=== PATIENT | female | born 1935 | race Caucasian/White ===

== ENCOUNTER 2019-09-09 19:30 | Inpatient (IN) ==
--- NOTE | 2019-09-09 20:09 | EKG Report ---
Test Performed on : 09/09/2019 7:54:55 PM Test Reason : SOB Blood Pressure : / mmHG Vent. Rate : 111 BPM Atrial Rate : 113 BPM P-R Int : 000 ms QRS Dur : 112 ms QT Int : 304 ms P-R-T Axes : 000 -50 060 degrees QTc Int : 413 ms Atrial fibrillation. with rapid ventricular response. with occasional ventricular-paced complexes Left axis deviation Anterior infarct , age undetermined Abnormal ECG When compared with ECG of 29-APR-2018 21:12, Electronic ventricular pacemaker has replaced Sinus rhythm. Unconfirmed Result
[2019-09-09] MEDS ORDERED: CARDIZEM IV ONE (20:36)
[2019-09-09 20:56] LABS: BASO# 0.03 X1000 (0.0-0.2); BASO% 0.5 % (0.0-0.8); EOS# 0.08 X1000 (0.0-0.7); EOS% 1.4 % (0.0-10.0); HEMATOCRIT 38.8 % (37.0-47.0); HEMOGLOBIN 13.1 g/dL (12.0-16.0); LYMPH# 1.59 X1000 (1.2-3.4); MCH 30.4 PG (27-31); MCHC 33.8 g/dL (33-37); MONO# 0.76 X1000 (0.11-0.59); MONO% 12.9 % (1.7-9.3); MPV 10.5 FL (7.4-10.4); NEUT# 3.42 X1000 (1.4-6.5); NEUT% 58.2 % (42.2-75.2); PLT 192 X1000 (130-400); RBC 4.31 XMIL (4.2-5.4); RDW 15.1 % (11.5-14.5); WBC 5.88 X1000 (4.8-10.8)
--- NOTE | 2019-09-09 21:01 | Diag Imaging Result Doc PS360 ---
EXAM: CHEST-1 VIEW 09/09/2019 HISTORY: SOB TECHNIQUE: AP portable at 0842 COMMENT: Compared to 08/28/2019 the pleural effusions present previously bilaterally have resolved. The inspiration is less optimal, otherwise are has been no significant change. IMPRESSION: No acute disease. Electronically signed by Fox Slater 09/09/2019 8:58 PM
[2019-09-09 21:22] LABS: ALB/GLOB RATIO 1.4; ALBUMIN 3.8 g/dL (3.5-5.0); CALCIUM 9.8 mg/dL (8.8-10.2); CREATININE 0.9 mg/dL (0.5-0.9); MAGNESIUM 1.7 mg/dL (1.5-2.7); TOTAL BILIRUBIN 0.71 mg/dL (0.20-1.00); TOTAL PROTEIN 6.5 g/dL (6.3-8.3)
[2019-09-09] MEDS ORDERED: LASIX IV ONE (22:41)
--- NOTE | 2019-09-09 23:18 | PROVIDER DOCUMENTATION ---
This chart was entered by Karli Clay Scribe, acting as scribe for Nila Joseph MD. HPI-Respiratory General - General Chief Complaint: Shortness of Breath Stated Complaint: SOB-CHEST HEAVY-NECK PAIN Time Seen by Provider: 09/09/19 20:06 Source: patient Allergies/Adverse Reactions: Patient Allergies Allergy/AdvReac Type Severity Reaction Status Date / Time No Known Allergies Allergy Verified 09/09/19 20:30 Home Medications: Home Medication List Medication Instructions Recorded Confirmed Last Taken Type Aspirin 81 mg PO DAILY 01/10/17 09/09/19 09/09/19 History Calcium Carbonate/Vitamin D3 600 mg PO DAILY 01/10/17 09/09/19 09/09/19 History [Calcium 600+D Softgel] Cholecalciferol (Vit D3) [Vitamin 5,000 unit PO DAILY 01/10/17 09/09/19 09/09/19 History D3] Levothyroxine [Synthroid] 88 microgm PO DAILY 01/10/17 09/09/19 09/09/19 History Metoprolol [Lopressor] 0.5 tab PO DAILY 01/10/17 09/09/19 09/09/19 History Tramadol HCl 50 mg PO DAILY PRN PRN 01/10/17 09/09/19 09/09/19 History Trazodone [Desyrel] 50 mg PO HS PRN PRN 01/10/17 09/09/19 09/08/19 History Furosemide 1 tab PO DAILY 09/09/19 09/09/19 09/09/19 History - History of Present Illness-Resp Nature of Presenting Problem: Pt is a 83 yof who presents to the ED with a cc of intermittent SOB and neck pain. pt states that her symptoms began 1 week ago. reports hx of afib. denies any chest pain or cough. states that her symptoms worsens with lying down. denies any other complaints. Quality of Pain: reports: sharp Severity in ED: reports: mild Onset/Duration: reports: 1 week ago Timing: reports: intermittent Exposure: reports: unknown cause Cough Quality/Degree: reports: no cough Episode Frequency: no prior episodes Current Respiratory Medication Therapy: Initiated see nurses note Modifying Factors: improves with: lying down (worsen), sitting upright (improves) Associated Symptoms: reports: shortness of breath Similar Symptoms Previously?: No Recently seen or treated by another doctor?: No Review of Systems - Adult - REVIEW OF SYSTEMS - ADULT Constitutional: reports: see HPI Eyes: reports: no symptoms reported Ears, Nose, Mouth & Throat: reports: no symptoms reported Cardiovascular: reports: see HPI, irregular heart rate. denies: chest pain Respiratory: reports: see HPI, shortness of breath Gastrointestinal: reports: no symptoms reported Genitourinary: reports: no symptoms reported Musculoskeletal: reports: see HPI, neck pain Integumentary: reports: no symptoms reported Neurological: reports: no symptoms reported Psychiatric: reports: no symptoms reported Endocrine: reports: no symptoms reported Hematologic/Lymphatic: reports: no symptoms reported Allergic/Immunologic: reports: no symptoms reported All Other Systems: Reviewed and Negative Past History - Adult - PAST MEDICAL HISTORY-ADULT Review of Records: reports: Social history reviewed & non-contributory. Major Childhood Illnesses: reports: denies history Cardiovascular: reports: A-Fib, HTN Respiratory: reports: denies history Gastrointestinal: reports: denies history Obstetrical/Gynecological: reports: denies history Genitourinary: reports: denies history Musculoskeletal: reports: denies history Neurological: reports: denies history Endocrine/Immune: reports: denies history Other Conditions: reports: denies history Physical Exam-General - PHYSICAL EXAM-ADULT Initial Vital Signs Reviewed: Yes - CONSTITUTIONAL General Appearance: alert - EYES Eyes: pink conjunctivae - HEAD, EARS, NOSE, MOUTH & THROAT HENMT: moist mucous membranes - NECK Neck: tender lateral, other (Left trapezius tenderness near neck). negative: non-tender, normal inspection - RESPIRATORY Respiratory: chest non-tender, lungs clear, normal breath sounds - CARDIOVASCULAR Cardiovascular: normal peripheral pulses, regular rate, rhythm - GASTROINTESTINAL (ABDOMEN) Abdominal Exam: normal bowel sounds, non tender, soft - MUSCULOSKELETAL Back Exam: normal inspection, other Extremity: normal range of motion, non-tender, normal inspection - SKIN Integumentary: normal color, normal turgor, warm/dry. negative: ecchymosis, erythema - NEUROLOGIC Neurologic: grossly normal - PSYCHIATRIC Psych/Mental Status: normal mood/affect, normal thought content, normal thought process, oriented x 3 - HEART Score HEART Score: History: Slightly Suspicious HEART Score: ECG: Normal HEART Score: Age: > or = 65 Years HEART Score: Risk Factors for Atherosclerotic Disease: 1 or 2 Risk Factors HEART Score: Troponin: < or = Normal Limit Total HEART Score:: 3 Progress - PLAN OF CARE/RESULTS Progress/Plan/Lab Results: Vital Signs - 8 hr 09/09/19 19:48 09/09/19 20:34 09/09/19 21:25 Temperature 97.6 F Pulse Rate 129 H 110 H 83 Respiratory Rate 20 17 18 Blood Pressure 111/80 141/87 123/61 O2 Sat by Pulse Oximetry 92 L 95 95 09/09/19 22:02 Temperature Pulse Rate 85 Respiratory Rate 20 Blood Pressure 132/88 O2 Sat by Pulse Oximetry 94 L Laboratory Results - last 24 hr 09/09/19 09/09/19 09/09/19 20:46 20:46 20:46 WBC 5.88 RBC 4.31 Hgb 13.1 Hct 38.8 MCV 90.0 MCH 30.4 MCHC 33.8 RDW Std Deviation 15.1 H Plt Count 192 MPV 10.5 H Immature Gran % (Auto) 0.0 Neut % (Auto) 58.2 Lymph % (Auto) 27.0 [place] % (Auto) 12.9 H Eos % (Auto) 1.4 Baso % (Auto) 0.5 Immature Gran # (Auto) 0.00 Neut # (Auto) 3.42 Lymph # (Auto) 1.59 [place] # (Auto) 0.76 H Eos # (Auto) 0.08 Baso # (Auto) 0.03 Sodium 139 Potassium 4.0 Chloride 100 Carbon Dioxide 28 Anion Gap 11 BUN 21 Creatinine 0.9 Estimated GFR/1.73 m2 60 BUN/Creatinine Ratio 23 Glucose 114 H Calculated Osmolality 281 Calcium 9.8 Magnesium 1.7 Total Bilirubin 0.71 AST 30 ALT 14 Alkaline Phosphatase 40 Creatine Kinase 76 Troponin T High Sens Drb-L-Axchsqejndv Pept 8484 H Total Protein 6.5 Albumin 3.8 Globulin 2.7 Albumin/Globulin Ratio 1.4 09/09/19 20:46 WBC RBC Hgb Hct MCV MCH MCHC RDW Std Deviation Plt Count MPV Immature Gran % (Auto) Neut % (Auto) Lymph % (Auto) [place] % (Auto) Eos % (Auto) Baso % (Auto) Immature Gran # (Auto) Neut # (Auto) Lymph # (Auto) [place] # (Auto) Eos # (Auto) Baso # (Auto) Sodium Potassium Chloride Carbon Dioxide Anion Gap BUN Creatinine Estimated GFR/1.73 m2 BUN/Creatinine Ratio Glucose Calculated Osmolality Calcium Magnesium Total Bilirubin AST ALT Alkaline Phosphatase Creatine Kinase Troponin T High Sens 28 H Bck-A-Ucbqyabmegd Pept Total Protein Albumin Globulin Albumin/Globulin Ratio Orders Category Date Time Status CHEST-1 VIEW [RAD] Stat Exams 09/09/19 20:35 Completed CBC WITH ELECTRONIC DIFF [HEME] Stat Lab 09/09/19 20:46 Completed CK PROFILE [SP CHEM] Stat Lab 09/09/19 20:46 Completed COMPREHENSIVE METABOLIC PANEL [CHEM] Stat Lab 09/09/19 20:46 Completed MAGNESIUM [CHEM] Stat Lab 09/09/19 20:46 Completed PRO B-NATRIURETIC PEPTIDE Stat Lab 09/09/19 20:46 Completed TROPONIN T HIGH SENSITIVITY Stat Lab 09/09/19 20:46 Completed Diltiazem [Cardizem] Med 09/09/19 20:36 Discontinued 10 mg IV NOW ONE Furosemide [Lasix] Med 09/09/19 22:41 Discontinued 40 mg IV NOW ONE EKG [EKG] Stat Ther 09/09/19 20:03 Draft Result Diagrams: 09/09/19 20:46 09/09/19 20:46 - REASSESSMENT Reassessment #1 Time Reassessed: 23:00 Status: improving (pt feeling better, labs and possible admission d/w pt.) - EKG 1 Time of EKG reading by physician:: 19:54 EKG Read and Signed by:: Nila Joseph EKG Interpretation (*Must complete 3 of following elements*): Abnormal (anterior infarct) Rate: 111 Rhythm: Afib with RVR [place]: left (deviation) QRS: normal NE Interval: normal ST Wave: normal Prior EKG Comparison: no prior EKG - XRAY 1 XRAY: Bilateral XRAY Study: Chest Impression: Normal, See EMR Report (EXAM: CHEST-1 VIEW 09/09/2019 HISTORY: SOB TECHNIQUE: AP portable at 0842 COMMENT: Compared to 08/28/2019 the pleural effusions present previously bilaterally have resolved. The inspiration is less optimal, otherwise are has been no significant change. IMPRESSION: No acute disease. Electronically signed by Fox Slater 09/09/2019 8:58 PM 09/09/192057 Interpreting Physician: Fox Slater MD Dictated Date/Time: 09/09/192057 cc: Nila Joseph MD; Damien Olivier MD) - CONSULTS/PCP/HOSPITALIST Notification #1 *Consult/PCP/Hospitalist*: d/w Dr Rodrigues Time Discussed: 23:15 Consult Disposition: Admit Departure - Departure Date of Disposition Decision: 09/09/19 Time of Disposition Decision: 23:17 DIAGNOSIS: CHF exacerbation, Atrial fibrillation with RVR Disposition: ADMITTED INPATIENT 09 Certified Medical Emergency: Emergent Condition: Stable Referrals and Follow-Ups: Damien Olivier MD [Primary Care Provider] - - Critical Care Note This patient required my direct & personal management of CC.: No Attestation - Physician/ SAURAV Attestation Patient care was provided by Advanced Practice Provider:: No The physician spent face to face time with patient:: Yes Advanced Practice Provider documentation review:: Supervising physician onsite and consulted in the evaluation and care of this patient. The physician did have a face to face encounter with the patient. This chart was documented by the indicated scribe, (Karli Clay Scribe) and accurately reflects the services I performed and decisions made by me, Nila Joseph MD, as attested by the provider's signature.
[2019-09-09] MEDS ORDERED: LOPRESSOR PO ONE (23:54)
[2019-09-10] MEDS ORDERED: ULTRAM PO PRN (01:56)
[2019-09-10] MEDS ORDERED: TYLENOL PO PRN (01:56)
[2019-09-10] MEDS ORDERED: ZOFRAN IV PRN (01:56)
[2019-09-10] MEDS: DESYREL PO PRN ×2 (02:54→21:58)
[2019-09-10 05:46] LABS: AGAP 11; BUN 17 mg/dL (8-22); CALCIUM 9.1 mg/dL (8.8-10.2); CHLORIDE 100 mmol/L (98-107); COSMO 281; CREATININE 0.8 mg/dL (0.5-0.9); ESTIMATED GFR > 60; GLUCOSE 99 mg/dL (70-104); MAGNESIUM 1.5 mg/dL (1.5-2.7); POTASSIUM 3.5 mmol/L (3.5-5.1); SODIUM 140 mmol/L (136-145); TCO2 29 mmol/L (25-35)
--- NOTE | 2019-09-10 06:22 | EKG Report ---
Test Performed on : 09/10/2019 05:12:35 AM Test Reason : follow up Blood Pressure : / mmHG Vent. Rate : 089 BPM Atrial Rate : 098 BPM P-R Int : 000 ms QRS Dur : 118 ms QT Int : 416 ms P-R-T Axes : 000 -47 040 degrees QTc Int : 506 ms Atrial fibrillation. with premature ventricular or aberrantly conducted complexes. Left axis deviation Incomplete left bundle branch block Prolonged QT Abnormal ECG When compared with ECG of 09-SEP-2019 19:54, (Unconfirmed) Atrial fibrillation. has replaced Electronic ventricular pacemaker Unconfirmed Result
[2019-09-10] MEDS: SYNTHROID PO SCH (07:48)
[2019-09-10] MEDS ORDERED: CARDIZEM PO SCH (08:00)
[2019-09-10] MEDS: ASPIRIN PO SCH (08:21)
[2019-09-10] MEDS: LASIX IV SCH ×2 (08:22→21:59)
--- NOTE | 2019-09-10 08:45 | EKG Report ---
Test Performed on : 09/10/2019 08:33:04 AM Test Reason : afib rvr Blood Pressure : / mmHG Vent. Rate : 067 BPM Atrial Rate : 067 BPM P-R Int : 000 ms QRS Dur : 112 ms QT Int : 392 ms P-R-T Axes : 059 -56 057 degrees QTc Int : 414 ms Sinus rhythm. with premature atrial complexes. in a pattern of bigeminy. Left axis deviation Nonspecific ST and T wave abnormality Abnormal ECG When compared with ECG of 10-SEP-2019 05:12, (Unconfirmed) Sinus rhythm. has replaced Atrial fibrillation. Incomplete left bundle branch block is no longer present Confirmed by Felicia Alcantara MD ([id number]) on 09/12/2019 12:15:32 PM
[2019-09-10] MEDS ORDERED: LOPRESSOR PO SCH (09:00)
[2019-09-10] MEDS ORDERED: MAGNESIUM SULFATE 2 GM/S.W.I. 2 GM/50 ML IVPB IV ONE (09:49)
--- NOTE | 2019-09-10 09:51 | HISTORY AND PHYSICAL ---
PRIMARY CARE PROVIDER: Dr. Damien Olivier. Inside Plant Supervisor is Dr. Whitehead CHIEF COMPLAINT: Shortness of breath and could not lay down without smothering. HISTORY OF PRESENT ILLNESS: Ms Person is a 83-year-old female who carries a past medical history of hypertension, breast cancer 20 years ago that she underwent a right lumpectomy in [place]. She reports today that she took 4 doses of her home Lasix secondary to having fluid on her lower extremities and she felt like she was smothering at home and she could not lay flat. She feels that her symptoms began over a week ago. She really denied any chest type pain. There was some mention of some neck pain. She denies any history of atrial fibrillation or congestive heart failure, but she does report that she her symptoms improved when she received IV Lasix and she is breathing much better now and she feels that her lower extremity edema has improved. Workup in the ED revealed atrial fibrillation with RVR. The proBNP of 8484, so we will admit her for new onset atrial fibrillation with RVR new onset congestive heart failure. Her initial rate when she came in was in the 130s. She was last in the 80s. We will get a repeat EKG to make sure she is out of rapid ventricular response or has converted to sinus rhythm. She was not hooked up to the monitor at the time of my assessment. However, she did sound irregular. We will watch her on PVC and continue with gentle diuresis and consult Cardiology. PAST MEDICAL HISTORY: Hypertension, breast cancer 20 years ago. PAST SURGICAL HISTORY: Right lumpectomy, right wrist surgery, left knee bone removal, cholecystectomy. ALLERGIES: No known drug allergies. SOCIAL HISTORY: Ex smoker 30 years ago. It sounds like she was a remote smoker. She is , son is at bedside. No alcohol, tobacco now or illicit drug use. HOME MEDICATIONS: 1. Calcium 600 D soft gel p.o. daily. 2. Vitamin D 5000 units p.o. daily. 3. Lasix 20 mg p.o. daily. 4. Aspirin 81 mg p.o. daily. 5. Synthroid 88 mg p.o. daily. 6. Toprol 50 mg half tab p.o. daily. 7. Tramadol 50 mg p.o. daily p.r.n. pain. 8. Desyrel 50 mg p.o. at bedtime p.r.n. sleep. REVIEW OF SYSTEMS: Twelve-point review of systems complete and negative except for those mentioned in HPI. PHYSICAL EXAMINATION: VITAL SIGNS: Temperature is 97.6 degrees. Initial heart rate was 129. O2 saturation was 92%. Current heart rate 85, respirations 20, blood pressure 132/88, O2 is 94% on room air. GENERAL: Ms. Person is an 83-year-old female who is sitting up in the stretcher in no acute distress. HEENT: Atraumatic, normocephalic. PERRL. NECK: Supple. Trachea midline. CARDIOVASCULAR: Irregularly irregular. RESPIRATORY: Lung sounds clear. GASTROINTESTINAL: Soft, nontender, nondistended. Positive bowel sounds 4 quads. EXTREMITIES: Lower extremity trace edema. She does have some pitting ankle edema on the left. NEUROLOGIC: No focal deficits noted. DIAGNOSTIC DATA: Initial EKG atrial fibrillation with RVR at 111 beats per minute. Waiting on repeat EKG. Chest x-ray compared to 08/01/2019, the pleural effusions present previously bilaterally have resolved. Inspiration is left optimal. Otherwise no significant change. LABORATORY DATA: White count 5, hemoglobin and hematocrit 13 and 38, platelet count is 192,000. Sodium 139, potassium 4.0, BUN 21, creatinine 0.9 blood glucose is 114, Mag is 1.7. Troponin 28. ProBNP is 8484. ASSESSMENT/PLAN: 1. New onset atrial fibrillation with rapid ventricular response. Patient reports no history of atrial fibrillation or any type of irregular heart beat. She was given a dose of metoprolol and IV Cardizem in the ED. Her rate dropped into the 80s. However, she still sounds irregular. She was not attached to the monitor at the time of my assessment. We will get a repeat EKG. Continue her home metoprolol. Consult Cardiology. We will recheck an echocardiogram, TSH and follow her electrolytes closely. 2. New onset congestive heart failure. She denies any history of heart failure. However, she is on home Lasix that she was just recently placed on by her primary care physician. She does have an old EKG, I believe from a year ago that shows an EF of 40 to 45 percent with some mild global hypokinesis. We will continue with some gentle diuresis at least for couple more doses. Await cardiology's recommendations. She did take 4 doses of her home Lasix and was given additional 40 in the ER. The patient does report improvement after the IV Lasix. She does not feel like she is smothering in her chest anymore and she feels like she has had some improvement in her lower extremity edema. We will trend 1 more set of cardiac enzymes and recheck a proBNP this morning. 3. Hypertension, will continue home medications. Blood pressures are stable. 4. History of breast cancer 20 years ago, status post right lumpectomy in [place]. 5. Further recommendations to follow physician evaluation, laboratory and diagnostic data. Dictated by HUMBLE Munoz for Terrence Rodrigues MD I have performed a face to face diagnostic evaluation. Labs/xrays- reviewed. Exam: Chest-clear, CV- regular. A/P- New onset of Afib, CHF- Admit, telemetry, cardiology consult, gentle diuresis. Dr. Rodrigues cc: MD Damien López MD William D. Denney, MD [facility]
--- NOTE | 2019-09-10 10:20 | EKG Report ---
Test Performed on : 09/10/2019 10:08:31 AM Test Reason : irregular HR Blood Pressure : / mmHG Vent. Rate : 084 BPM Atrial Rate : 100 BPM P-R Int : 120 ms QRS Dur : 116 ms QT Int : 384 ms P-R-T Axes : 000 -50 010 degrees QTc Int : 453 ms Sinus rhythm. with marked sinus arrhythmia. Left axis deviation Anterior infarct , age undetermined Abnormal ECG When compared with ECG of 10-SEP-2019 08:33, (Unconfirmed) premature atrial complexes. are no longer present Confirmed by Felicia Alcantara MD ([id number]) on 09/12/2019 12:15:40 PM
[2019-09-10 10:31] LABS: FREE T4 1.66 ng/dL (0.93-1.70); TSH 0.66 uIUmL (0.27-4.20)
--- NOTE | 2019-09-10 10:31 | CARDIOLOGY CONSULTATION ---
DATE: 09/10/2019 CHIEF COMPLAINT ON PRESENTATION: Shortness of breath. HISTORY OF PRESENT ILLNESS: Ms. Marshall is an 83-year-old, white female who normally follows with Dr. Whitehead. She has a history of valvular heart disease, hypertension, and a mild reduction in ejection fraction. She presented for evaluation after around 2 weeks or so of shortness of breath. At some point, she was discontinued off of her diuretic per her primary care physician. She subsequently resumed it a few days ago at the direction again from her primary care physician. She reported some issues with orthopnea over that time period. She has not had any chest pain. She denies any heart racing. PAST MEDICAL HISTORY: Significant for: 1. Valvular heart disease. Her last echocardiogram was in July 2018. Ejection fraction on that study was 40-45%. She had mild to moderate mitral regurgitation, mild to moderate aortic insufficiency. Peak gradient across the valve was 10. She had mild global hypokinesis on that study. A stress test in 2014 demonstrated a moderate size, mild intensity defect in the mid and basal inferolateral segments and portions of the inferior wall that suggested a possible reversibility, EF of 57%. 2. Pulmonary embolism. 3. Hypothyroidism. 4. Hypertension. SOCIAL HISTORY: She does not currently smoke. FAMILY HISTORY: Significant for hypertension. REVIEW OF SYSTEMS: A 10 system review of systems is negative except for those things mentioned in the HPI. PHYSICAL EXAMINATION: She is afebrile. Heart rates have been anywhere from the 70s to the 120s. Blood pressure 132/78. General: She is in no acute distress. HEENT: Oropharynx is moist. Poor dentition. Eye examination shows pink conjunctivae and white sclerae. Neck: Examination shows no obvious thyromegaly or thyroid tenderness. Cardiovascular: She sounds to be in a somewhat irregular rhythm. She has a 2/6 systolic murmur heard throughout the precordium. She has no lower extremity edema. She has warm and well-perfused extremities. Chest: Examination is clear bilaterally. She has no increased work of breathing. Abdomen: Soft, nontender, nondistended. She has no obvious organomegaly. Skin Examination: Warm and dry throughout, without any rashes. Neurological: She is moving all extremities well. She has no lateralizing deficits. PERTINENT DATA: She had an EKG on the that demonstrated a heart rate of 111 beats per minute. She has clear demonstration of P-waves on that study of multiple morphologies. PVC versus aberrant conduction is noted as well. I do not believe this represents atrial fibrillation. Subsequent EKG on the at 5:12 a.m. again shows a clear identification of P- waves at times. PVC was identified. I do not believe this represents atrial fibrillation. Final EKG on the at 8:33 a.m. shows sinus rhythm with PACs and a pattern of bigeminy. Her chest x- ray demonstrates no evidence of any acute disease. Her lab data demonstrates a white count of 5.8, hematocrit of 38, platelet count of 192,000. Sodium 140, potassium is 3.5, BUN 17, creatinine 0.8, magnesium level is 1.5. ProBNP was 8484 yesterday with a check of 1631 this morning. Her troponin was 28 yesterday. TSH is 0.09. ASSESSMENT: Ms. Marshall is an 83-year-old female who presents with complaints of shortness of breath. PLAN: At this point, she does not appear to have atrial fibrillation but rather appears to have possible multifocal atrial tachycardia. Initial reviews of her echocardiogram suggested possible severe mitral regurgitation. We will discontinue the diltiazem. Previously, she was on Toprol at 50 mg 1/2 tablet daily. I will change that to 12.5mg Q6 hours for now. I have also added in some losartan at 25 mg daily. We will review the echocardiogram once it is fully completed. May consider an ischemia evaluation based on that study. I have repeated an EKG to evaluate but I do not believe this patient has atrial fibrillation at that time. Presently, the etiology of her heart failure could possibly be related to the mitral regurgitation. cc: Eber Barron MD [facility]
[2019-09-10] MEDS: COZAAR PO SCH (10:36)
[2019-09-10] MEDS: LOPRESSOR PO SCH ×2 (14:29→21:57)
--- NOTE | 2019-09-10 18:52 | ECHO REPORT ---
ORDER DATE: 09/10/2019 INDICATION: Atrial fibrillation with rapid response. M-MODE MEASUREMENTS: Left ventricle end diastole: 5.2. Left ventricle end systole: 4.7. Posterior wall: 1.0. Interventricular septum: 1.0. Left atrium: 5.3. Aortic diameter: 3.5. SUMMARY OF 2-DIMENSIONAL IMAGIN. The left ventricular chamber is not dilated. There is a mild degree of concentric LVH. Left ventricular systolic function appears to be significantly impaired, estimated to be on the order of 25% to 30%. There is akinesis of the inferior wall. 2. The aortic valve shows calcification of the cusps with some degree of stenosis. Color flow mapping indicates a moderate degree of regurgitation. 3. The mitral annulus shows heavy calcification. Color flow mapping of the mitral valve shows moderately severe to possibly severe degree of mitral regurgitation. 4. Pulse wave Doppler of mitral inflow shows a variable E/A ratio. The patient may be in sinus rhythm with frequent PACs. 5. Tissue Doppler of septal and lateral mitral annulus averages shows a marked reduction in the e' velocity, indicating significant diastolic dysfunction. The velocity is on the order of 3 cm/sec. 6. The tricuspid valve shows a moderate degree of regurgitation. Pulmonary pressure is estimated at 48 to 53 mmHg. 7. The left atrium is significantly enlarged. The right atrium is moderately enlarged. 8. The right ventricle is also mildly enlarged . 9. There is no pericardial effusion. 10.The patient appears to be in a mij-stkaaam-hcerfv state. SUMMARY: This study shows significantly impaired systolic function with ejection fraction estimated at 25% to 30% with moderately severe to severe degree of mitral regurgitation and moderate degree of aortic regurgitation. The patient appears to be in a vvq-sdjuywj-hnqlwe state. Pulmonary pressure is 48 to 53 mmHg. Significant diastolic dysfunction is present. Clinical correlation recommended. cc: Chetan Wynn MD
[2019-09-11] MEDS: LOPRESSOR PO SCH ×4 (05:06→21:46)
[2019-09-11] MEDS: SYNTHROID PO SCH (06:42)
--- NOTE | 2019-09-11 07:12 | EKG Report ---
Test Performed on : 09/11/2019 06:53:08 AM Test Reason : irregular HR Blood Pressure : / mmHG Vent. Rate : 078 BPM Atrial Rate : 100 BPM P-R Int : 152 ms QRS Dur : 116 ms QT Int : 460 ms P-R-T Axes : 000 -70 -66 degrees QTc Int : 524 ms Sinus rhythm. with marked sinus arrhythmia. Left axis deviation Nonspecific ST and T wave abnormality Prolonged QT Abnormal ECG When compared with ECG of 10-SEP-2019 10:08, (Unconfirmed) T wave inversion no longer evident in Lateral leads QT has lengthened Confirmed by Felicia Alcantara MD ([id number]) on 09/12/2019 12:16:18 PM
[2019-09-11 08:06] LABS: BASO# 0.03 X1000 (0.0-0.2); BASO% 0.9 % (0.0-0.8); EOS# 0.12 X1000 (0.0-0.7); EOS% 3.6 % (0.0-10.0); HEMATOCRIT 41.4 % (37.0-47.0); HEMOGLOBIN 13.9 g/dL (12.0-16.0); LYMPH# 1.32 X1000 (1.2-3.4); LYMPH% 39.1 % (20.5-51.1); MCH 30.4 PG (27-31); MCHC 33.6 g/dL (33-37); MCV 90.6 FL (81-99); MONO% 14.8 % (1.7-9.3); MPV 10.7 FL (7.4-10.4); NEUT# 1.41 X1000 (1.4-6.5); NEUT% 41.6 % (42.2-75.2); PLT 193 X1000 (130-400); RBC 4.57 XMIL (4.2-5.4); WBC 3.38 X1000 (4.8-10.8)
[2019-09-11 08:27] LABS: CALCIUM 9.2 mg/dL (8.8-10.2); CREATININE 0.9 mg/dL (0.5-0.9); POTASSIUM 3.5 mmol/L (3.5-5.1)
[2019-09-11] MEDS ORDERED: COZAAR PO SCH (09:00)
[2019-09-11] MEDS: COZAAR PO SCH (09:03)
[2019-09-11] MEDS: ASPIRIN PO SCH (09:03)
[2019-09-11] MEDS: LASIX IV SCH ×2 (09:04→21:46)
[2019-09-11] MEDS ORDERED: XYLOCAINE 2% VISCOUS ONE (09:19)
[2019-09-11 09:43] LABS: INR 1.04; PROTIME 13.7 Seconds (11.0-16.0)
[2019-09-11] MEDS ORDERED: ANESTHESIA PB SET 88 IN 5742 ONE (14:05)
[2019-09-11] MEDS ORDERED: CLAVE TWINSITE 32 IN 11959 ONE (14:05)
[2019-09-11] MEDS ORDERED: NS 1,000 ML ONE (14:05)
[2019-09-11] MEDS ORDERED: LANOXIN IV ONE (14:40)
--- NOTE | 2019-09-11 15:02 | Transesophageal Echocardiogram ---
DATE: 09/11/2019 REASON FOR PROCEDURE: A transesophageal echocardiogram to evaluate severity of mitral regurgitation. DETAILED PROCEDURE: The patient was brought to the cardiac catheterization laboratory. After informed consent was obtained, a transesophageal probe was easily passed into the esophagus. Prior to that, throat was premedicated with 1% Cetacaine spray. She was given Versed and Etomidate. Please see detailed anesthesia records. She was noted to have tachycardia. She was given Lopressor 5 mg intravenously to control her heart rate. There was no complications. FINDINGS: 1. Normal left ventricular cavity size. Estimated ejection fraction of 25 to 30 percent. 2. Left atrium was enlarged. Left atrial appendage was normal. 3. Right atrium was normal. 4. Saline contrast study was negative for PFO. 5. There was moderate tricuspid regurgitation. 6. Tricuspid valve was normal. 7. Mitral valve leaflets were mildly thickened, opening normally. There was mitral annular calcification. 8. Aortic valve leaflets were sclerosed, trileaflet. 9. Pulmonic valve was normal. 10. Doppler studies revealed moderate mitral regurgitation. 11. There is moderate tricuspid regurgitation. 12. There is severe mitral regurgitation. 13. There is mild aortic regurgitation. 14. Ascending aorta was normal. 15. Descending aorta not well visualized. CONCLUSIONS: 1. Normal left ventricular cavity size. Estimated ejection fraction of 25 to 30 percent. 2. There is severe mitral regurgitation. cc: MD Eber Rogers MD
--- NOTE | 2019-09-11 15:30 | PROGRESS NOTE ---
DATE: 09/11/2019 SUBJECTIVE: Patient reports feeling better. Not requiring any oxygen supplementation. OBJECTIVE: Vital Signs: Temperature 97.7 degrees, heart rate 107, respiratory rate 20, blood pressure 124/68, O2 saturation 100% on room air. General Examination: This is an 83-year-old, female lying in bed, in no acute distress. Cardiovascular Examination: S1 and S2 heard. No murmurs, gallops, or rubs. Regular rate and rhythm. Respiratory Examination: Clear bilaterally to auscultation. Minimal crackles noted in both pulmonary bases. Patient is not using any accessory muscles or having work of breathing. Abdomen: Soft, nontender to palpation. Bowel sounds present. No organomegaly. Extremities: No clubbing, cyanosis, or edema. Peripheral pulses present in both legs. Neurological Examination: The patient is alert and oriented x3. Moves 4 extremities. ASSESSMENT AND PLAN: 1. New onset systolic congestive heart failure. The echocardiogram found out that the patient has an ejection fraction of 25 to 30 percent, very depressed systolic function. At this point, we will continue with the current management with Lasix. Definitely, she is responding nicely to the therapy. She is not requiring any oxygen supplementation and she he is breathing better. I do not know if this is something secondary to chemotherapy and radiotherapy that she had many years ago because of the lung cancer. In any case, cardiology has been consulted and they are going to perform a transesophageal echocardiogram. They are going to evaluate also the degree of mitral insufficiency and we will go from there. I appreciate cardiology input. 2. New onset atrial fibrillation with rapid ventricular rate. At this point, the heart rate is well controlled, less than 100. We will continue to monitor. 3. Hypertension. Blood pressure is under control. We will continue with the same management. 4. History of breast cancer 20 years ago. The patient is still having yearly appointments and everything so far is okay. cc: James Dangelo MD
--- NOTE | 2019-09-11 18:52 | CARDIOLOGY PROGRESS NOTE ---
DATE: 09/11/2019 SUBJECTIVE: Ms. Marshall reports she feels much better this morning. She is not having any dyspnea. OBJECTIVE: Vital signs: Afebrile. Heart rates have been widely variable anywhere from 40 to 107. Her blood pressure is 124/68. Her telemetry has shown what appears to be sinus with multiple PACs and PVCs. No significant bradycardia identified on that. She had an EKG this morning that demonstrated sinus rhythm with grouped PACs. General: No acute distress. Cardiovascular: She sounds to be in a regular rate and rhythm. She has no obvious murmurs. She has no S3. She has no lower extremity edema. Chest: Exam is clear bilaterally. No increased work of breathing. Abdomen: Soft, nontender. PERTINENT DATA: White count 3.4, hematocrit is 41, platelet count is 193,000, sodium 139, potassium 3.5, BUN 21, creatinine 0.9. ASSESSMENT: Ms. Marshall is an 83-year-old female who presented yesterday with what appears to be severe mitral regurgitation and a newly reduced ejection fraction in the setting of heart failure. PLAN: She has new heart failure with severe MR. We are going to set her up for a transesophageal echocardiogram to further evaluate today. She does not appear to have atrial fibrillation at this time. Her intake and output have been negative over the course of the hospitalization, and she continues on a low dose of IV Lasix, which I would continue for the time being. We will recheck laboratories in the morning including a basic metabolic panel and a proBNP. Further recommendations to follow the transesophageal echocardiogram. cc: Eber Barron MD
[2019-09-11] MEDS: DESYREL PO PRN (23:42)
[2019-09-12] MEDS: LOPRESSOR PO SCH ×3 (03:27→15:48)
[2019-09-12] MEDS: SYNTHROID PO SCH (06:21)
[2019-09-12] MEDS ORDERED: COZAAR PO SCH (09:00)
[2019-09-12 09:25] LABS: AGAP 11; BUN 19 mg/dL (8-22); CALCIUM 9.6 mg/dL (8.8-10.2); CHLORIDE 99 mmol/L (98-107); COSMO 286; CREATININE 0.8 mg/dL (0.5-0.9); ESTIMATED GFR > 60; GLUCOSE 105 mg/dL (70-104); POTASSIUM 4.3 mmol/L (3.5-5.1); SODIUM 142 mmol/L (136-145); TCO2 32 mmol/L (25-35)
[2019-09-12] MEDS ORDERED: HEPARIN 1000 UNITS/NS 2,000 UNIT/1,000 ML IV.SOLN ONE (09:27)
[2019-09-12] MEDS ORDERED: NS 100 ML ONE (09:30)
[2019-09-12] MEDS: ASPIRIN PO SCH (09:37)
[2019-09-12] MEDS: LASIX IV SCH (09:38)
[2019-09-12] MEDS ORDERED: VERSED ONE (10:33)
[2019-09-12] MEDS ORDERED: DILAUDID ONE (10:34)
[2019-09-12] MEDS ORDERED: NS 1,000 ML ONE (10:34)
[2019-09-12] MEDS ORDERED: ANESTHESIA PB SET 88 IN 5742 ONE (10:34)
[2019-09-12] MEDS ORDERED: CLAVE TWINSITE 32 IN 11959 ONE (10:34)
--- NOTE | 2019-09-12 11:05 | PROGRESS NOTE ---
DATE: 09/12/2019 SUBJECTIVE: Patient reports feeling fine. No shortness of breath. Not requiring any oxygen supplementation. No chest pain. No chest pressure. OBJECTIVE: Vital Signs: Temperature 98.9 degrees, heart rate 100, respiratory rate 18, blood pressure 138/81, O2 saturation 93% on room air. General: This is a 89-year-old female lying in bed, in no acute distress. Cardiovascular: S1, S2 heard. She has had a 3/6 systolic murmur in the mitral area. Respiratory: Exam very minimal crackles noted in both pulmonary bases. Patient not using any accessory muscles or having work of breathing. Abdomen: Soft, nontender to palpation. Bowel sounds present. No organomegaly. Extremities: No clubbing, cyanosis, or edema. Peripheral pulses present in both legs. Neurological: Patient alert and oriented x3. Moves 4 extremities. LABORATORY DATA: BMP is completely normal. ASSESSMENT AND PLAN: 1. New onset systolic congestive heart failure. From yesterday, patient had a transesophageal echocardiogram which basically showed estimated ejection fraction of 25 to 30 percent and also severe mitral regurgitation. Cardiology has decided to proceed with a right heart catheterization. We will see what that procedure shows. We will continue to monitor this patient closely and following recommendations from Cardiology. Currently, she continues to be on Lasix. We will continue with the same management. 2. New onset atrial fibrillation. At this point, heart rate is well controlled. We will continue with the same management. 3. Hypertension. Blood pressure is well controlled in the range of 130 systolic blood pressure most of the time. We will continue with the same management. 4. History of breast cancer 20 years ago. Aware. The patient is still having yearly appointments for this problem and everything is so far okay. 5. Disposition following leads from Cardiology. cc: James Dangelo MD
--- NOTE | 2019-09-12 12:47 | EKG Report ---
Test Performed on : 09/12/2019 12:08:18 PM Test Reason : post heart cath Blood Pressure : / mmHG Vent. Rate : 072 BPM Atrial Rate : 072 BPM P-R Int : 180 ms QRS Dur : 124 ms QT Int : 392 ms P-R-T Axes : 076 -53 009 degrees QTc Int : 429 ms Sinus rhythm. with premature supraventricular complexes. Left axis deviation Nonspecific intraventricular conduction delay Nonspecific ST and T wave abnormality Abnormal ECG When compared with ECG of 11-SEP-2019 06:53, premature supraventricular complexes. are now present Inverted T waves have replaced nonspecific T wave abnormality in Anterior leads QT has shortened Confirmed by Quinton RICE, Felicia Schumacher ([id number]) on 09/12/2019 6:46:18 PM
--- NOTE | 2019-09-12 16:22 | CARDIAC CATH REPORT ---
PROCEDURE NAME: - INDICATION FOR THE PROCEDURE: Severe mitral regurgitation and congestive heart failure. PROCEDURES PERFORMED: 1. Right heart catheterization. 2. Left heart catheterization. 3. Left ventriculogram. 4. Selective coronary angiography. PROCEDURE IN DETAIL: Ms. Marshall was brought to the catheterization laboratory in fasting state. Informed consent was obtained. Prepped in usual fashion. She was anesthetized over the right femoral area. She initially had a wire placed in the right femoral vein. The right femoral artery was then cannulated in a modified Seldinger technique. Sheath was placed and flushed. The venous sheath was then placed and flushed. The right heart catheterization was performed initially with advancement into the wedge position. Thermodilution and Nova cardiac outputs were performed. Pullback measurements were made in the RV and in the right atrium. Attention was then turned to the right femoral artery. It was advanced into the ascending thoracic aorta. Hemodynamic measurements made. Coronary angiography was performed in multiple views using JL4 and JR4 diagnostic catheters. Left heart catheterization and left ventriculogram was performed using the JR4. At the conclusion of the procedure all sheaths and catheters were removed. Pressure was held with good hemostasis. 10-20 mL of blood loss. 65 mL of IV contrast. No apparent complications. FINDINGS: Coronary Angiography: 1. The left main has a calcified ostial 50% to 60% lesion. 2. Left anterior descending originates from the left main. There is severe late proximal, early mid vessel lesion of around 90% with severe branch vessel disease in multiple diagonals. There is a 70% first diagonal lesion and multiple septals with severe disease. 3. Circumflex originates from the left main. There is an 80% to 90% proximal lesion with a 60% to 70% high OM lesion. 4. Right coronary originates from the right coronary cusp. There is a 90% ostial severely calcified lesion with a 90% midvessel lesion. There is a fairly prominent occluded RV branch which appears to reconstitutes somewhat from right to right collateralization. Notably, there is also some [id number] collateralization filling the right coronary. 5. Aortic blood pressure is 98/54 with a mean of 72. Left ventricular pressure 102/9 with an LVEDP of 12. 6. Right atrial pressure 8. 7. Right ventricular pressure 38/7 with an LVEDP of 10. 8. Pulmonary artery pressure 31/21 with a mean of 24. 9. Wedge pressure of 9. 10. Thermodilution cardiac output was 1.86 with a Nova output of 2.14. Thermodilution cardiac index was 1.1 with a Nova cardiac index of 1.2. 11. LV ejection fraction was estimated at 35%. This was complicated by ectopy. ASSESSMENT: Ms. Marshall is an 83-year-old female who presented with congestive heart failure and severe mitral regurgitation. PLAN: She has severe multi-vessel disease at this time. From a volume standpoint, she seems to be doing well based on her filling pressures. We are pending consultation with [facility] regarding potential intervention. We will proceed with secondary risk factor modification. cc: Eber Barron MD
[2019-09-12 20:43] VITALS: BP 115/58
--- NOTE | 2019-09-15 13:34 | DISCHARGE SUMMARY ---
ADMISSION DATE: 09/10/2019 DISCHARGE DATE: 09/12/2019 DISCHARGE DIAGNOSES: 1. New-onset atrial fibrillation with rapid ventricular rate. 2. New-onset congestive heart failure secondary to mitral insufficiency. 3. Hypertension. 4. History of breast cancer. CONSULTATIONS: Dr. Eber Barron from Cardiology. PROCEDURES: 1. Chest x-ray done on admission showed no acute disease. 2. Echocardiogram with Doppler showed estimated ejection fraction of 25% to 30% percent with [id number] degree of mitral regurgitation and low cardiac output. 3. Right heart catheterization and left heart catheterization showed multivessel disease at this time. HOSPITAL COURSE: In brief, this is an 83-year-old, female with past medical history of hypertension and breast cancer, who presented to the emergency department complaining of shortness of breath. She reports being healthy all the time, has not been in any hospital until the day of admission. The patient looks to be in new-onset congestive heart failure. The chest x-ray confirmed that finding, resulting in workup as we mentioned. We confirmed severe coronary artery disease with severe mitral insufficiency. That is the reason why Cardiology decided to send this patient to [facility] for further evaluation. cc: James Dangelo MD
== END 2019-09-12 20:40 | disposition short-term general hospital (02) | DRG 287 ==
LOC: ED 19:30 → EDIPHOLD 09-10 01:57 → SUATTDRO 09-10 01:57 → 3N 09-10 16:12 → 2N 09-12 12:01
PROVIDERS: ATTEND Internal Medicine